=== PATIENT | female | born 1990 | race African-American/Black ===

== ENCOUNTER 2016-12-01 21:04 | Emergency (ER) | payer OTHER ==
[~2016-12-01] VITALS: Ht 167.6 cm; Wt 76.0 kg
[2016-12-01 21:16] VITALS: BP 141/64; PULSE 77; RESP 20; TEMP 98.5; O2SAT 100
--- NOTE | 2016-12-01 21:33 | PD ---
HPI Chief Complaint: Injury Time Seen by Provider: 21:29 Travel History International Travel<30 days: No Contact w/Intl Traveler<30days: No Traveled to known affect area: No History of Present Illness HPI 25 old female presents to the emergency department by private transportation for injury to the left shoulder. Patient reports 30 minutes prior to arrival to the emergency department while playing at football/sports she fell forward and injured her shoulder. Patient is right-handed. Patient states she did not hit her head did not have loss of consciousness did not injure her neck back chest ribs abdomen pelvis or lower extremities. Patient reports no discomfort or injury to the right upper extremity. Patient denies any numbness tingling or weakness of the left upper extremity. Patient reports localized tenderness and pain to the left shoulder. Patient presents with step-off deformity of the shoulder. Patient rates pain 7/10 in intensity. PFSH Past Medical History Narrative Medical asthma; knee surgery;occasional alcohol use: nursing notes reviewed Social History Tobacco Use: No Allergies-Medications (Allergen,Severity, Reaction): Coded Allergies: No Known Allergies (Unverified , 12/01/16) Comments No known drug allergies Reported Meds & Prescriptions Reported Meds & Active Scripts Active Ibuprofen 800 Mg Tab 800 Mg PO Q8H PRN Percocet (Oxycodone-Acetaminophen) 5-325 mg Tab 1 Tab PO Q6H PRN Reported Claritin (Loratadine) 10 Mg Cap 10 Mg PO DAILY Narrative Medication Claritin Review of Systems Except as stated in HPI: all other systems reviewed are Neg HENT: No: Headaches, Neck Pain Respiratory: No: Shortness of Breath, Pleuritic Pain Gastrointestinal: No: Abdominal Pain Genitourinary: No: Pelvic Pain, Flank Pain Musculoskeletal: Positive: Pain (left shoulder) Neurologic: No: Weakness, Paresthesia Hematologic/Lymphatic: No: Easy Bruising Physical Exam Narrative GENERAL: Well-developed well-nourished female in obvious discomfort no respiratory distress; GCS 15 SKIN: Warm and dry. HEAD: Normocephalic. EYES: No scleral icterus. No injection or drainage. NECK: Supple, trachea midline. No JVD or lymphadenopathy. CARDIOVASCULAR: Regular rate and rhythm without murmurs, gallops, or rubs. RESPIRATORY: Breath sounds equal bilaterally. No accessory muscle use. GASTROINTESTINAL: Abdomen soft, non-tender, nondistended. MUSCULOSKELETAL: No cyanosis, or edema. Left shoulder shows step-off deformity distally extremity is neurovascular tendon intact with brisk capillary refill less than 2 seconds per digit radial and ulnar pulses are 2+ to palpation patient has intact flexion extension of each digit and flexion extension of the left wrist. Sensory exam intact. BACK: Nontender without obvious deformity. No CVA tenderness. Data Data Last Documented VS Vital Signs Date Time Temp Pulse Resp B/P Pulse Ox O2 Delivery O2 Flow Rate FiO2 12/02/16 00:39 18 12/02/16 00:37 100 12/01/16 23:36 73 Nasal Cannula 2 12/01/16 23:36 130/90 12/01/16 21:16 98.5 Orders Shoulder, Limited(2vws) (12/01/16 ) NPO (12/01/16 21:29) Ice/Cold Pack (12/01/16 21:33) Sodium Chlor 0.9% 1000 Ml Inj (Ns 1000 M (12/01/16 21:45) Propofol 200 Mg/20 Ml Inj (Diprivan 200 (12/01/16 22:15) Shoulder, Limited(2vws) (12/01/16 ) Ketorolac Inj (Toradol Inj) (12/01/16 22:45) Splint Or Brace Apply/Monitor (12/01/16 23:37) Sling And Swathe (12/01/16 ) Oxycodone-Acetamin 5-325 Mg (Percocet (12/02/16 00:00) MDM Medical Decision Making Medical Screen Exam Complete: Yes Emergency Medical Condition: Yes Medical Record Reviewed: Yes Interpretation(s) Last Impressions Shoulder X-Ray 12/01/16 0000 Signed Impressions: Service Date/Time: Thursday, December 01, 2016 22:42 - CONCLUSION: Status post reduction of left shoulder dislocation. Jacob Moss MD Shoulder X-Ray 12/01/16 0000 Signed Impressions: Service Date/Time: Thursday, December 01, 2016 21:33 - CONCLUSION: Anterior dislocation of the shoulder. Jacob Moss MD Vital Signs Date Time Temp Pulse Resp B/P Pulse Ox O2 Delivery O2 Flow Rate FiO2 12/01/16 23:22 18 12/01/16 22:42 63 18 117/65 99 Nasal Cannula 2 12/01/16 22:16 100 Nasal Cannula 2 12/01/16 22:15 99 2.00 12/01/16 21:38 18 100 Room Air 12/01/16 21:16 98.5 77 20 141/64 100 Differential Diagnosis Dislocation, subluxation, fracture, neurovascular tendon injury Narrative Course Imaging study ordered IV access obtained with plan for first sedation and reduction of shoulder dislocation Imaging consistent with anterior shoulder dislocation without evidence of associated fracture; consent obtained for procedural sedation and reduction of the dislocated shoulder. Please refer to procedure Notes. Patient administered Toradol 30 mg IV for complaint of 4/10 shoulder discomfort. Postreduction x-ray shows successful reduction and no fracture Patient has been monitored and remained stable; patient would provide a prescription for pain medication to take as needed encouraged to use ice intermittently for next 24 hours encouraged to follow-up with local orthopedist and return to emergency department before the peak follow-up for any concerns Procedures Procedure Narrative After the risks and benefits were discussed the following procedure was performed: MODERATE SEDATION: The patient was placed on a monitor tech and pulse oximetry. An ambu bag and suction was immediately available at bedside. The patient was monitored by the nurse. Oxygen saturation, heart rate and blood pressure were monitored. Procedural sedation was achieved using propofol 130mg . The patient was observed until awake and alert. Procedural Sedation time in attendance was 20 minutes. After optimal positioning of the patient with monitor tech pulse oximetry and capnography in place along with IV access and maintenance IV fluids successful sedation was achieved and gentle traction countertraction maneuver of the left upper extremity was performed to reduce the dislocated humeral head into the glenoid fossa. Procedure was performed without difficulty. Time for procedure 12 minutes. 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 Sling and swath applied. Post procedure x-ray performed. Diagnosis Primary Impression: Anterior shoulder dislocation Qualified Code: S43.015A - Anterior shoulder dislocation, left, initial encounter Referrals: Orthopedist call for appointment Patient Instructions: General Instructions, Moderate Sedation (ED) Additional Instructions: wear sling and swath to support shoulder at all times Apply ice intermittently to left shoulder for the next 12-24 hours Take pain medication as prescribed as needed be aware that pain medication may impair judgment, delay reaction time, increased risk for fall, cause constipation Take ibuprofen as prescribed as needed for pain associated inflammation Follow-up with orthopedist Return to the emergency department for any concerns or change in condition Med/Other Pt SpecificInfo: Prescription(s) given Scripts Ibuprofen 800 Mg [id number] Mg PO Q8H PRN (PAIN GREATER THAN 5) #15 TAB Ref 0 Prov:Tiffany Johnson MD 12/01/16 Oxycodone-Acetaminophen (Percocet)5-325 mg Tab1 Tab PO Q6H PRN (PAIN) #12 TAB Ref 0 Prov:Tiffany Johnson MD 12/01/16 Disposition: 01 DISCHARGE HOME Condition: Stable Tiffany Johnson MD Dec 01, 2016 21:33
[2016-12-01] MEDS ORDERED: CLAR10CA3 PO (21:35)
[2016-12-01] MEDS ORDERED: SODIUM CHLOR 0.9% 1000 ML INJ 1,000 ML IV ONE (21:45)
[2016-12-01 22:15] VITALS: O2SAT 99
[2016-12-01] MEDS ORDERED: PROPOFOL 200 MG/20 ML AMP IV ONE (22:15)
--- NOTE | 2016-12-01 22:33 | RADHPO ---
EXAM DATE/TIME: 12/01/2016 21:33 [facility] COMPARISON: No previous studies available for comparison. INDICATIONS : Left shoulder pain. Post injury while playing football today. MEDICAL HISTORY : None. SURGICAL HISTORY : None. ENCOUNTER: Initial ACUITY: 1 day PAIN SCORE: 10/10 LOCATION: Left shoulder. FINDINGS: There is anterior/inferior dislocation of the humerus with respect to the glenoid. No fracture seen. The a.c. joint is intact the visualized left upper ribs are intact. CONCLUSION: Anterior dislocation of the shoulder. Jacob Moss MD on December 01, 2016 at 22:31 Board Certified Radiologist. This report was verified electronically.
[2016-12-01 22:42] VITALS: BP 117/65; PULSE 63; RESP 18; O2SAT 99
[2016-12-01] MEDS ORDERED: KETOROLAC TROMETHAMINE 30 MG/ML (IVP) VIAL IV PUSH ONE (22:45)
--- NOTE | 2016-12-01 22:51 | RADHPO ---
EXAM DATE/TIME: 12/01/2016 22:42 [facility] COMPARISON: SHOULDER LEFT LTD (2VWS), December 01, 2016, 21:33. INDICATIONS : Left shoulder dislocation post reduction. MEDICAL HISTORY : None. SURGICAL HISTORY : None. ENCOUNTER: Subsequent ACUITY: 1 day PAIN SCORE: 5/10 LOCATION: Left shoulder. FINDINGS: Two-view examination of the shoulder status post reduction demonstrates good alignment of the humeral head and glenoid on the transscapular Y. view. No fracture is seen. CONCLUSION: Status post reduction of left shoulder dislocation. Jacob Moss MD on December 01, 2016 at 22:49 Board Certified Radiologist. This report was verified electronically.
[2016-12-01] MEDS ORDERED: IBUP800T23 PO (23:34)
[2016-12-01] MEDS ORDERED: PERC5TAB12 PO (23:34)
[2016-12-01 23:36] VITALS: BP 130/90; PULSE 72; RESP 18; O2SAT 100
[2016-12-02] MEDS ORDERED: oxyCODONE/ACETAMINOPHEN 5 MG/325 MG TAB PO ONE
[2016-12-02 00:39] VITALS: RESP 18
== END 2016-12-02 00:38 | disposition home or self-care (01) ==
LOC: PHED 21:04
DX: S43.015A Anterior dislocation of left humerus, initial encounter (principal); J45.909 Unspecified asthma, uncomplicated; W19.XXXA Unspecified fall, initial encounter; Y93.61 Activity, american tackle football
CPT/HCPCS: 23650; 73030; 94770; 96361; 96374; 99152; 99283; J1885; J7030; 29240